=== PATIENT | male | born 1990 | race Caucasian/White ===

== ENCOUNTER 2021-02-09 10:41 | Emergency (ER) | payer OTHER ==
[~2021-02-09] VITALS: Ht 188 cm; Wt 90.7 kg
[~2021-02-09 10:41] MED LIST: AMOX500 PO
== END 2021-02-09 11:25 | disposition home or self-care (01) ==
LOC: ER 10:41
DX: U07.1 COVID-19 (principal); Z88.1 Allergy status to other antibiotic agents
CPT/HCPCS: 99282